=== PATIENT | male | born 1975 | race Caucasian/White ===

== ENCOUNTER → 2020-06-29 | Outpatient (CLI) | payer OTHER ==
--- NOTE | 2020-06-29 16:49 | KCIC ---
Examination: MRI of the left knee without contrast HISTORY: History of left knee pain COMPARISON: None available TECHNIQUE: Multiplanar, multisequence MR imaging of the left knee was performed without contrast. FINDINGS: The anterior cruciate ligament, posterior cruciate ligament appear intact.. There is blunting of the posterior horn of the medial meniscus likely tear of the medial meniscus. The lateral meniscus appears intact. The medial collateral ligament is intact. Lateral complex ligamentous complex including the fibular c ollateral ligament, biceps femoris tendon, popliteus tendon appear intact.. The extensor mechanism appears intact. The medial, lateral retinaculum appears intact. Mild trabecular edema is within the medial tibial plateau. Large knee joint effusion. Mild increased T2 signal identified in the soft tissue anterior lateral to the knee joint likely ricardo a. Deep fissuring of cartilage identified in the medial compartment. Mild superficial fraying of cart ilage in lateral, patellofemoral compartments. Moderate joint space loss medial, lateral, patellofemoral compartments. IMPRESSION: 1. Tear of the posterior horn of the medial meniscus. 2. Mild trabecular edema identified within the medial tibial plateau. 3. Large knee joint effusion. 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 Electronically signed by: Daniel Basilio MD (06/29/2020 4:47 PM) [id number]
== END ==
LOC: KCIC MRI 15:07
PROVIDERS: ATTEND Physician Assistant
DX: S83.512A Sprain of anterior cruciate ligament of left knee, initial encounter (principal); S83.242A Other tear of medial meniscus, current injury, left knee, initial encounter; M25.462 Effusion, left knee; M17.12 Unilateral primary osteoarthritis, left knee; X58.XXXA Exposure to other specified factors, initial encounter; Y93.89 Activity, other specified; Y92.89 Other specified places as the place of occurrence of the external cause; Y99.8 Other external cause status
CPT/HCPCS: 73721

== ENCOUNTER → 2020-10-07 | Outpatient (CLI) | payer OTHER ==
[~2020-10-07] MED LIST: HYDR-2765 PO
== END ==
LOC: LAB 10:23
PROVIDERS: ATTEND Orthopaedic Surgery
DX: Z01.812 Encounter for preprocedural laboratory examination (principal); S83.242D Other tear of medial meniscus, current injury, left knee, subsequent encounter; Z20.822 Contact with and (suspected) exposure to COVID-19; X58.XXXD Exposure to other specified factors, subsequent encounter
CPT/HCPCS: U0003; U0005

== ENCOUNTER 2020-10-09 07:03 | Day surgery (SDC) | payer OTHER ==
[~2020-10-09] VITALS: Ht 177.8 cm; Wt 139.0 kg
[~2020-10-09 07:03] MED LIST changes: -HYDR-2765 PO; +HYDROmorphone 2 MG/ML VIAL IVP PRN; +IV RINGERS,LACTATED 1000ML 1,000 ML IV SCH; +MORPHINE SULFATE 2 MG/ML INJ. IVP PRN; +PROCHLORPERAZINE 10 MG/2 ML VIAL. IVP PRN; +ceFAZolin SODIUM 3 GM in IV DEXTROSE 5% 100ML 100 ML IV PRN; +fentaNYL PF VIAL 100 MCG/2 ML VIAL IVP PRN
[2020-10-09] MEDS ORDERED: BUPIVACAINE-EPI 0.5% 30 ML VIAL KIT. ONE (07:20)
[2020-10-09 07:24] VITALS: BP 166/104
[2020-10-09] MEDS ORDERED: LIDOCAINE 2% PF 5 ML VIAL. ONE (08:20)
[2020-10-09] MEDS ORDERED: MIDAZOLAM HCL/PF 2 MG/2 ML VIAL. ONE (08:20)
[2020-10-09] MEDS ORDERED: PROPOFOL 10 MG/ML (20ML) VIAL. IV ONE (08:20)
[2020-10-09] MEDS ORDERED: fentaNYL PF VIAL 100 MCG/2 ML VIAL ONE ×2 (08:20→09:55)
[2020-10-09] MEDS ORDERED: HYDR-2765 PO (09:01)
--- NOTE | 2020-10-09 09:02 | DISCH ---
DISCHARGE INSTRUCTIONS Condition on Discharge Condition on Discharge: Stable Activity After Discharge Activity Instructions for Disc: Activity as tolerated Weight Bearing Status after Di: As tolerated Diet after Discharge Diet after Discharge: Regular Wound Incision Care Wound/Incision Care: Change dressing (Remove dressing in 2 days may then shower no soaking until sutures removed) Contacting the DRStephanie after DC Call your doctor for: Concerns you may have Follow-Up Follow up with: Ar 7 to 10 days RAGHU RAMOS MD Oct 09, 2020 09:02
[2020-10-09] MEDS ORDERED: ONDANSETRON PF 4 MG/2 ML VIAL. ONE (09:25)
[2020-10-09] MEDS ORDERED: DEXAMETHASONE SOD PHOS 4 MG/ML VIAL ONE (09:25)
[2020-10-09] MEDS ORDERED: SEVOFLURANE 31 TO 60 MINUTES. IH ONE (09:25)
[2020-10-09] MEDS: fentaNYL PF VIAL 100 MCG/2 ML VIAL IVP PRN ×2 (09:59→10:14)
[2020-10-09] MEDS ORDERED: HYDROcodone/APAP 7.5/325MG 1 TAB TABLET PO ONE (10:15)
[2020-10-09] MEDS ORDERED: hydrALAZINE 20 MG/ML VIAL. ONE (10:17)
[2020-10-09 10:24] VITALS: BP 189/90
[2020-10-09] MEDS ORDERED: hydrALAZINE 20 MG/ML VIAL. IVP ONE (10:30)
--- NOTE | 2020-10-11 19:26 | PDOC4 ---
Operative Note Operative Note Date of surgery: 10/09/2020 Preoperative diagnosis: Left knee medial meniscus tear Postoperative diagnosis: Same Operative procedure: Left knee arthroscopy partial medial meniscectomy Surgeon: Harris Assist: Hamlet khan Anesthesia: General Estimated blood loss: 5 cc Complications: None Operative indications: Please see my preoperative clinic note for detailed operative indications and note that we covered that I cannot undo any degenerative changes present and we are just treating the meniscus damage and other mechanical issues. We also covered the possibility of continued pain infection nerve or blood vessel damage medical or other anesthetic complications among others all his questions were answered he agrees to proceed with surgical evaluation and treatment Operative text: Patient was identified procedure verified patient placed in the supine position on the operating table. After adequate amounts of general anesthesia were administered the left lower extremity was prepped and draped in standard sterile fashion with a thigh tourniquet. After timeout was performed patient procedure identified and verified the left lower extremity was exsanguinated by Esmarch bandage tourniquet inflated to 300 mmHg a lateral portal was established medial portal established and spinal needle localization and the knee joint was systematically examined. 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 No loose bodies noted in the gutters or suprapatellar pouch although he did have some irritation over the medial femoral condyle where a medial para patellar plica was debrided. He did have a displaceable tear posterior horn of the medial meniscus which was trimmed back to stable tissue using arthroscopic punch and shaver. ACL was probed and found to be intact as was the lateral meniscus. Knee was again toward to ensure no loose bodies present and was drained of arthroscopic fluid. Half percent Marcaine was injected into the arthroscopic portals and fat pad area. Portals were closed with nylon suture sterile soft dressings were applied. She was returned to recovery room stable condition having tolerated procedure well. Hamlet khan was present for the procedure assisted in patient positioning prepping draping equipment positioning closure and dressings RAGHU RAMOS MD Oct 11, 2020 19:26
== END 2020-10-09 10:50 | disposition home or self-care (01) ==
LOC: SURG 07:03
PROVIDERS: ATTEND Orthopaedic Surgery
DX: S83.242A Other tear of medial meniscus, current injury, left knee, initial encounter (principal); I10 Essential (primary) hypertension; E66.01 Morbid (severe) obesity due to excess calories; Z79.899 Other long term (current) drug therapy; Z98.890 Other specified postprocedural states; X58.XXXA Exposure to other specified factors, initial encounter; Y93.89 Activity, other specified; Y92.89 Other specified places as the place of occurrence of the external cause
CPT/HCPCS: 29881; A4930; J0360; J1100; J2250; J2405; J2704; J3010; A4223

== ENCOUNTER → 2020-12-01 | Outpatient (CLI) | payer OTHER ==
[~2020-12-01] MED LIST changes: +HYDR-2765 PO; -HYDROmorphone 2 MG/ML VIAL IVP PRN; -IV RINGERS,LACTATED 1000ML 1,000 ML IV SCH; +LISI20TA18 PO; +METO50TA4 PO; -MORPHINE SULFATE 2 MG/ML INJ. IVP PRN; +OXYC-325 PO; -PROCHLORPERAZINE 10 MG/2 ML VIAL. IVP PRN; -ceFAZolin SODIUM 3 GM in IV DEXTROSE 5% 100ML 100 ML IV PRN; -fentaNYL PF VIAL 100 MCG/2 ML VIAL IVP PRN
== END ==
LOC: LAB 09:56
PROVIDERS: ATTEND Surgery
DX: Z01.812 Encounter for preprocedural laboratory examination (principal); K43.9 Ventral hernia without obstruction or gangrene; Z20.822 Contact with and (suspected) exposure to COVID-19
CPT/HCPCS: U0003; U0005

== ENCOUNTER 2020-12-03 08:41 | Day surgery (SDC) | payer OTHER ==
[~2020-12-03] VITALS: Ht 177.8 cm; Wt 140.0 kg
[~2020-12-03 08:41] MED LIST changes: +ACETAMINOPHEN 500 MG TABLET PO PRN; +HYDROmorphone 2 MG/ML VIAL IVP PRN; +IV RINGERS,LACTATED 1000ML 1,000 ML IV SCH; -OXYC-325 PO; +PROCHLORPERAZINE 10 MG/2 ML VIAL. IVP PRN; +ceFAZolin SODIUM 3 GM in IV DEXTROSE 5% 100ML 100 ML IV PRN; +fentaNYL PF VIAL 100 MCG/2 ML VIAL IVP PRN
[2020-12-03] MEDS ORDERED: BUPIVACAINE-EPI 0.5% 30 ML VIAL KIT. ONE (09:48)
[2020-12-03] MEDS ORDERED: MINERAL OIL for SURGERY 10 ML VIAL. MC ONE (09:48)
[2020-12-03] MEDS ORDERED: LIDOCAINE 1% PF 5 ML VIAL. ONE (10:33)
[2020-12-03] MEDS ORDERED: ROCURONIUM 50 MG/5 ML VIAL. ONE ×2 (10:33→11:44)
[2020-12-03] MEDS ORDERED: PROPOFOL 10 MG/ML (20ML) VIAL. IV ONE (10:33)
[2020-12-03] MEDS ORDERED: fentaNYL PF VIAL 100 MCG/2 ML VIAL ONE ×2 (10:36→12:37)
[2020-12-03] MEDS ORDERED: MIDAZOLAM HCL/PF 2 MG/2 ML VIAL. ONE (10:37)
[2020-12-03] MEDS ORDERED: DEXAMETHASONE SOD PHOS 4 MG/ML VIAL ONE ×2 (11:43→12:19)
[2020-12-03] MEDS ORDERED: KETAMINE HCL IN NACL, ISO-OSM 50 MG/5 ML SYRINGE ONE (11:44)
[2020-12-03] MEDS ORDERED: GLYCOPYRROLATE 1 MG/5 ML VIAL. ONE (11:49)
[2020-12-03] MEDS ORDERED: NEOSTIGMINE METHYLSULFATE 5 MG/5 ML SYRINGE. ONE (11:49)
[2020-12-03] MEDS ORDERED: SUGAMMADEX SODIUM 200 MG/2 ML VIAL. IVP ONE (12:15)
[2020-12-03] MEDS ORDERED: SEVOFLURANE 61 TO 120 MINUTES. IH ONE (12:18)
[2020-12-03] MEDS ORDERED: ONDANSETRON PF 4 MG/2 ML VIAL. ONE (12:19)
[2020-12-03] MEDS ORDERED: KETOROLAC 30 MG/ML VIAL. ONE (12:34)
[2020-12-03] MEDS: fentaNYL PF VIAL 100 MCG/2 ML VIAL IVP PRN ×2 (12:40→12:51)
--- NOTE | 2020-12-03 12:44 | PDOC4 ---
Operative Note Operative Note Date: December 032020 at 1241 Preoperative diagnosis: Umbilical hernia Postoperative diagnosis: Same Procedure: Robotic assisted laparoscopic umbilical hernia repair with mesh Surgeon: Haider Specimen: None Dictation: Patient is a 45-year-old male with complaints of a painful bulge at his umbilicus he also feels like he has another hernia just above that in the epigastric area. The procedure of robotic assisted laparoscopic umbilical hernia repair with mesh was explained to the patient detail risk benefits were also discussed including bleeding infection injury to intra-abdominal contents possible necessitating further open operations alternatives to this procedure also discussed with the patient who seemed to understand and gave a verbal written consent to have the procedure performed. Patient was taken to the operating room placed in the supine position general anesthesia was initiated once patient was sleeping intubated his abdomen was prepped and draped usual sterile fashion using ChloraPrep. Area in the left upper quadrant was injected quarter percent Marcaine with epinephrine incision was made 11 blade scalpel and a 5 mm Visiport was placed under direct visualization in the abdomen creating pneumoperitoneum once this was complete 5 mm camera was placed within the abdomen which was inspected no other hernias were noted other than the 1 at the umbilicus a 8 mm ventral port was placed in the left midabdomen and 8 mm da Gregory port was placed in left lower abdomen and the 5 mm Visiport was changed out to 8 mm ventral port in the left upper abdomen. The da Gregory robot was brought and docked all port sites surgeon went to the robotic console using a grasper and Endo Stephanie scissors the hernia contents and sac were reduced. The fascial defect was then closed with a running 2 OV lock nonabsorbable suture. Ventral light ST mesh was then placed over the hernia defect this was sewn into place with a circumferential 2 OV lock absorbable suture the preperitoneal fat was closed over the mesh with a remnant of the 2 OV lock nonabsorbable suture. Sutures removed from the abdomen. The da Gregory robot was undocked from all port sites all ports were removed the pneumoperitoneum was reduced all port sites wer e closed for subcuticular Monocryl Mastisol Steri-Strips and island dressings were applied. Patient was awakened and extubated in the operating room taken to recovery in stable condition all sponge instrument needle counts listed as correct estimated blood loss 10 mL. XAVIER SEGAL MD Dec 03, 2020 12:44
[2020-12-03] MEDS ORDERED: OXYC-325 PO (12:46)
--- NOTE | 2020-12-03 12:47 | DISCH ---
DISCHARGE INSTRUCTIONS Condition on Discharge Condition on Discharge: Stable Activity After Discharge Activity Instructions for Disc: Avoid exertion Other activity instructions: No lifting more than 20 pounds for 2 weeks Diet after Discharge Diet after Discharge: Regular Wound Incision Care Other wound/incision instructi: May shower in 24 hours Contacting the after DC Call your doctor for: Concerns you may have Follow-Up Follow up with: Follow-up Dr. Segal in 2 weeks XAVIER SEGAL MD Dec 03, 2020 12:47
[2020-12-03] MEDS ORDERED: MORPHINE SULFATE 2 MG/ML INJ. ONE ×2 (12:59→13:12)
[2020-12-03] MEDS: MORPHINE SULFATE 2 MG/ML INJ. IVP PRN ×4 (13:01→13:50)
[2020-12-03] MEDS ORDERED: oxyCODONE/APAP 5/325 1 TAB TABLET PO ONE (13:15)
[2020-12-03 13:27] VITALS: BP 158/98
== END 2020-12-03 14:02 | disposition home or self-care (01) ==
LOC: SURG 08:41
PROVIDERS: ATTEND Surgery
DX: K42.9 Umbilical hernia without obstruction or gangrene (principal); I10 Essential (primary) hypertension; G47.30 Sleep apnea, unspecified; Z87.891 Personal history of nicotine dependence; Z79.899 Other long term (current) drug therapy; Z98.890 Other specified postprocedural states; Z72.89 Other problems related to lifestyle
CPT/HCPCS: 49652; A4364; A4930; A6219; C1781; J1100; J1885; J2250; J2270; J2405; J2704; J2710; J3010; J3490; S2900; A4657